=== PATIENT | female | born 1930 | race Caucasian/White ===

== ENCOUNTER → 2017-09-21 | Outpatient (CLI) | payer MEDICARE ==
[~2017-09-21] MED LIST: ASPIR 8181 MG PO; BENICAR40 MG PO; CALCIUM 600 +1 EAC1 PO; CELEXA40 MG PO; DOXYCYCLINE 10100 MG PO; HYDROCODONE-AP1 EAC6 PO; LEVAQUIN 500 M500 M2 PO; MUCINEX600 MG PO; NEOSPORIN OIN28.3 GM TOP; OSCIMIN0.125 M1; PREDNISONE 10 M10 MG PO; PROAIR HFA8.5 GM SPRAY; PROTONIX40 M1 PO; SALINE NASAL SP30 ML NASAL; SENNA8.6 MG PO; TESSALON PERLE100 MG PO; TUMS PO; TYLENOL325 MG PO; VENTOLIN HFA 1818 GM INH; VERAPAMIL ER240 MG PO; VITAMIN D1000 UNI1 PO; XANAX 0.5 MG0.5 M1 PO; XARELTO10 MG PO; ZOFRAN ODT4 MG PO
== END ==
LOC: M.RAD 14:11
DX: J18.9 Pneumonia, unspecified organism (principal); Z86.73 Personal history of transient ischemic attack (TIA), and cerebral infarction without residual deficits

== ENCOUNTER 2017-09-28 13:46 | Emergency (ER) | payer MEDICARE ==
[~2017-09-28] VITALS: Ht 160 cm; Wt 59.0 kg
[~2017-09-28 13:46] MED LIST changes: -NEOSPORIN OIN28.3 GM TOP; -PROAIR HFA8.5 GM SPRAY; -TYLENOL325 MG PO; -VITAMIN D1000 UNI1 PO; -ZOFRAN ODT4 MG PO
[2017-09-28] MEDS ORDERED: VITAMIN D1000 UNI1 PO (13:53)
[2017-09-28 14:36] LABS: ABSOLUTE EOSINOPHILS 0.2 thou/uL (0.0-0.7); ABSOLUTE LYMPHOCYTES 1.4 thou/uL (0.8-5.3); ABSOLUTE MONOCYTES 0.8 thou/uL (0.0-1.2); ABSOLUTE NEUTROPHILS 4.4 thou/uL (1.6-8.1); BASOPHILS 0.6 %; EOSINOPHILS 2.7 %; HEMATOCRIT 34.2 % (37.0-47.0); HEMOGLOBIN 11.5 gm/dL (12.0-15.0); MCH 31.6 pg (26.0-34.0); MCHC 33.6 g/dL (28.0-37.0); MONOCYTES 12.1 %; MPV 7.9 fl. (7.2-11.1); NUCLEATED RBCS 0 /100WBC; PLATELET COUNT* 229 thou/uL (150-400); POLYS 64.6 %; RBC 3.64 mil/uL (4.20-5.00); RDW-CV 14.4 % (10.5-14.5); WBC 6.8 thou/uL (4.0-11.0)
[2017-09-28 14:46] LABS: ANION GAP 2 mmol/L (7-16); BUN 16 mg/dL (7-18); CALCIUM 7.9 mg/dL (8.5-10.1); CHLORIDE 104 mmol/L (98-107); CO2 35 mmol/L (21-32); CREATININE 0.9 mg/dL (0.6-1.3); GLUCOSE 87 mg/dL (70-99); POTASSIUM 3.9 mmol/L (3.5-5.1); SODIUM 141 mmol/L (136-145)
[2017-09-28 14:54] LABS: ALBUMIN 2.6 g/dL (3.4-5.0); ALKALINE PHOSPHATASE 53 U/L (46-116); SGOT 14 U/L (15-37); SGPT 13 U/L (30-65); TOTAL BILIRUBIN 0.3 mg/dL (<0.1-1.0); TOTAL PROTEIN 5.9 g/dL (6.4-8.2); TROPONIN-I LEVEL <0.06 ng/mL (<0.06)
[2017-09-28 14:55] LABS: APTT 23.9 Seconds (25.0-31.3); INR 1.1; PROTIME 10.3 Seconds (9.20-11.50)
[2017-09-28] MEDS ORDERED: NEOSPORIN OIN28.3 GM TOP (15:29)
[2017-09-28 15:33] LABS: URINE BILIRUBIN NEGATIVE (Negative); URINE BLOOD NEGATIVE (Negative); URINE CLARITY CLEAR; URINE COLOR YELLOW; URINE GLUCOSE-RANDOM NEGATIVE (Negative); URINE KETONES TRACE (Negative); URINE LEUKOCYTES-REFLEX NEGATIVE (Negative); URINE NITRITE-REFLEX NEGATIVE (Negative); URINE PROTEIN NEGATIVE (Negative); URINE SPECIFIC GRAVITY 1.025 (1.005-1.030)
[2017-09-28 15:48] VITALS: BP 168/79
--- NOTE | 2017-09-29 14:17 | EKG ---
[place] [address] ELECTROCARDIOGRAM REPORT Name: CECILIA VELASQUEZ Room: [facility]#: [id number] Admission: 09/28/17 Attend Phys: Discharge: 09/28/17 Date of : 32 Report #: [id number] THIS REPORT FOR: //name// [facility] ED Test Date: 2017-09-28 Test Time: 14:05:37 Pat Name: CECILIA VELASQUEZ Department: Room: Gender: F Lead Former: Markus URRUTIA : 1930 Requested By: Jayde Torres Order Number: [id number] MD: Luke Hopper Measurements Intervals [place] Rate: 87 P: 34 CT: 129 QRS: 24 QRSD: 119 T: 63 QT: 400 QTc: 482 Interpretive Statements Sinus rhythm Nonspecific intraventricular conduction delay Baseline wander in lead(s) V6 Compared to ECG 08/31/2017 16:32:39 Intraventricular conduction delay now present Ventricular premature complex(es) no longer present T-wave abnormality no longer present Electronically Signed On 09-29-2017 14:17:40 CLIENT CUSTOMER MANAGER by Luke Hopper [email or web address] <ELECTRONICALLY SIGNED> By: Luke Hopper MD, [facility] 09/29/17 1417 1405 1405 Luke Hopper MD, [facility] /EPI
== END 2017-09-28 15:48 | disposition home or self-care (01) ==
LOC: M.ERS 13:46
PROVIDERS: Physician Assistant
DX: S01.01XA Laceration without foreign body of scalp, initial encounter (principal); G30.9 Alzheimer's disease, unspecified; F02.80 Dementia in other diseases classified elsewhere, unspecified severity, without behavioral disturbance, psychotic disturbance, mood disturbance, and anxiety; J44.9 Chronic obstructive pulmonary disease, unspecified; F10.99 Alcohol use, unspecified with unspecified alcohol-induced disorder; Z88.5 Allergy status to narcotic agent; Z88.1 Allergy status to other antibiotic agents; Z88.0 Allergy status to penicillin; Z98.890 Other specified postprocedural states; Z90.710 Acquired absence of both cervix and uterus; Z86.73 Personal history of transient ischemic attack (TIA), and cerebral infarction without residual deficits; Z88.8 Allergy status to other drugs, medicaments and biological substances; W18.09XA Striking against other object with subsequent fall, initial encounter; Y93.89 Activity, other specified; Y92.89 Other specified places as the place of occurrence of the external cause; Y99.8 Other external cause status

== ENCOUNTER 2017-10-22 18:19 | Emergency (ER) | payer MEDICARE ==
[~2017-10-22] VITALS: Ht 160 cm; Wt 66.2 kg
[~2017-10-22 18:19] MED LIST changes: +NEOSPORIN OIN28.3 GM TOP; +VITAMIN D1000 UNI1 PO
[2017-10-22 18:41] LABS: HEMATOCRIT 37.9 % (37.0-47.0); HEMOGLOBIN 12.4 gm/dL (12.0-15.0); MCH 30.6 pg (26.0-34.0); MCHC 32.8 g/dL (28.0-37.0); MCV 93.2 fL (80.0-100.0); MPV 8.4 fl. (7.2-11.1); NUCLEATED RBCS 0 /100WBC; PLATELET COUNT* 289 thou/uL (150-400); RBC 4.07 mil/uL (4.20-5.00); RDW-CV 14.3 % (10.5-14.5); WBC 16.6 thou/uL (4.0-11.0)
[2017-10-22 18:45] LABS: CALCIUM 8.4 mg/dL (8.5-10.1); CREATININE 0.9 mg/dL (0.6-1.3); POTASSIUM 3.8 mmol/L (3.5-5.1)
[2017-10-22 18:50] LABS: TOTAL BILIRUBIN 0.7 mg/dL (<0.1-1.0); TOTAL PROTEIN 6.6 g/dL (6.4-8.2)
[2017-10-22 18:59] LABS: ABSOLUTE LYMPHOCYTES 1.3 thou/uL (0.8-5.3); ABSOLUTE NEUTROPHILS 15.3 thou/uL (1.6-8.1)
[2017-10-22 19:01] LABS: PLATELET ESTIMATE ADEQUATE
[2017-10-22 19:03] LABS: LARGE PLATELETS OCCASIONAL
[2017-10-22 19:04] LABS: ANISOCYTOSIS Occasional
[2017-10-22] MEDS ORDERED: PROTONIX40 M1 PO (19:05)
[2017-10-22] MEDS ORDERED: PROAIR HFA8.5 GM SPRAY (19:07)
[2017-10-22] MEDS ORDERED: TYLENOL325 MG PO (19:07)
[2017-10-22 19:32] LABS: INFLUENZA A ANTIGEN None Detected (None Detect); INFLUENZA B ANTIGEN None Detected (None Detect)
[2017-10-22 20:38] LABS: URINE BILIRUBIN NEGATIVE (Negative); URINE BLOOD NEGATIVE (Negative); URINE CLARITY CLEAR; URINE COLOR YELLOW; URINE GLUCOSE-RANDOM NEGATIVE (Negative); URINE KETONES NEGATIVE (Negative); URINE LEUKOCYTES-REFLEX NEGATIVE (Negative); URINE NITRITE-REFLEX NEGATIVE (Negative); URINE PROTEIN NEGATIVE (Negative)
[2017-10-22] MEDS ORDERED: ZOFRAN ODT4 MG PO (20:41)
[2017-10-22 20:49] VITALS: BP 141/75
== END 2017-10-22 20:51 | disposition home or self-care (01) ==
LOC: M.ERS 18:19
PROVIDERS: Physician Assistant
DX: R11.2 Nausea with vomiting, unspecified (principal); J44.9 Chronic obstructive pulmonary disease, unspecified; G30.9 Alzheimer's disease, unspecified; F02.80 Dementia in other diseases classified elsewhere, unspecified severity, without behavioral disturbance, psychotic disturbance, mood disturbance, and anxiety; Z86.73 Personal history of transient ischemic attack (TIA), and cerebral infarction without residual deficits; Z88.5 Allergy status to narcotic agent; Z88.0 Allergy status to penicillin; Z88.1 Allergy status to other antibiotic agents